=== PATIENT | female | born 1955 | race Caucasian/White ===

== ENCOUNTER 2022-07-07 13:08 | Outpatient (CLI) | payer MEDICARE, SELFPAY ==
[2022-07-07 23:07] LABS: Chloride* 105 mmol/L (96-114); Potassium* 4.3 mmol/L (3.6-5.1); Sodium* 138 mmol/L (135-149)
[2022-07-07 23:09] LABS: Creatinine* 0.8 mg/dL (0.5-1.5); Estimated Glomerular Filt Rate 80 ml/min
[2022-07-07 23:10] LABS: Blood Urea Nitrogen* 16 mg/dL (7-30); Carbon Dioxide* 27 mmol/L (20-32); Glucose* 78 mg/dL (60-115)
== END 2022-07-07 13:09 | disposition home or self-care (01) ==
LOC: LKVREF 13:09
PROVIDERS: PCP Family Medicine; Visit Provider Family Medicine
DX: Z01.818 Encounter for other preprocedural examination (principal)
CPT/HCPCS: 80048

== ENCOUNTER 2022-07-28 08:16 | Day surgery (SDC) | payer MEDICARE, SELFPAY ==
[2022-07-28] VITALS (24 sets, daily range): BP systolic 90–148; BP diastolic 60–109; PULSE 45–79; RESP 14–16; TEMP 35.8–36.6; O2SAT 91–98; BMI 29.9
[2022-07-28] MEDS: SODIUM CHLORIDE 0.9 % (FLUSH) 10 ML SYRINGE IVF (08:35)
[2022-07-28] MEDS: LACTATED RINGERS 1000 ML 1,000 ML 100 ML IV (08:35)
--- NOTE | 2022-07-28 08:47 | CRLHL7_ITS ---
For Patients: As a result of the Cures Act, medical imaging exams and procedure reports are released immediately into your electronic medical record. You may view this report before your referring provider. If you have questions, please contact your health care provider. Indication: post op left TKA Technique: Two views left knee Findings/Impression: Hardware from a left total knee arthroplasty is in satisfactory position. Bone alignment is normal. No sign of acute fracture. Postop changes are within normal limits. Dictated by William Ortiz MD @ 07/28/2022 12:31:33 PM (Electronically Signed)
[2022-07-28] MEDS: CELECOXIB 200 MG CAPSULE PO ×2 (08:55→21:37)
[2022-07-28] MEDS: ACETAMINOPHEN 500 MG TABLET 1000 MG PO ×3 (08:55→21:37)
[2022-07-28] MEDS: OXYCODONE (CR) 10 MG TAB.ER.12H PO (08:55)
[2022-07-28] MEDS: MIDAZOLAM HCL 1 MG/ML inj IVP (09:45)
[2022-07-28] MEDS: fentaNYL 100 MCG/2 ML inj IVP (09:45)
[2022-07-28] MEDS: CEFAZOLIN 2 GM in 0.9 % SODIUM CHLORIDE Mini-bag 100 ML IVPB ×3 (10:05→21:38)
--- NOTE | 2022-07-28 10:06 | SUR.PREOP ---
TIME?OUT:?0944 PT/RN/MDA?VERIFICATION?OF?SURGICAL?SITE left knee,?PROCEDURE,?AND?CONSENT OBTAINED?PRIOR?TO?INVASIVE?PROCEDURE.
[2022-07-28] MEDS: TRANEXAMIC ACID 100 MG/ML INJ 1000 MG IV (10:10)
--- NOTE | 2022-07-28 11:23 | P.ORPRC_ITS ---
Procedure Note Date of procedure: 07/28/22 Procedure: PREOPERATIVE DIAGNOSIS: 1. Left knee osteoarthritis, primary, severe POSTOPERATIVE DIAGNOSIS: 1. Left knee osteoarthritis, primary, severe PROCEDURE: 1. Left total knee arthroplasty SURGEON: Boy Caputo MD. GAMMA FACILITIES OPERATOR: Miguelito Davenport PA-C - Of note, a skilled assistant bookkeeper was critical for this case to aid in patient positioning, tissue retraction, limb manipulation/positioning, and closure. ANESTHESIA: Spinal anesthetic EBL: 50ml IMPLANTS: DePuy J&J all cemented TKA - Attune PS femur size 6 regular, size 5 tibia, 6 mm poly spacer, 35 mm patella TOURNIQUET: 90 min at 300 torr COMPLICATIONS: None evident INDICATIONS: The patient is a pleasant 58-year-old female who has experienced severe left knee pain and difficulty bearing weight. Workup included x-rays which revealed severe osteoarthrosis in the knee. Given the deformity, the dysfunction, and the pain, as well as the failure of nonoperative management, recommendation was made for surgery. FINDINGS: Full-thickness chondral loss medial compartment broadly. Significant patellofemoral chondromalacia. Moderate effusion upon entering the joint. Moderate synovitis noted throughout the knee as well. DESCRIPTION OF PROCEDURE: Following a thorough discussion of risks, benefits, and alternatives consent was obtained and the left knee was marked. The patient was brought to the operating room and placed supine on the operating table. Induction of anesthesia was undertaken. 2 g IV Ancef and 1 g tranexamic acid was administered within 1 hr of incision preoperatively. Proper time-out was performed identifying proper patient, site, procedure. The operative extremity was prepped and draped in the appropriate sterile fashion using ChloraPrep after the patient was positioned supine with all bony prominences well padded. A longitudinal, anterior, midline skin incision was made starting approximately 3cm proximal to the superior pole of the patella and advanced distal to the tibial tubercle. A median parapatellar arthrotomy was created. A medial subperiosteal sleeve was created with knife, tran elevator and curved osteotome. The retropatellar fatpad was resected and the synovium in the suprapatellar pouch excised to visualize the anterior femoral cortex. Femoral preparation was performed via an intramedullary guide. Step drill allowed access into the femoral canal. The distal cutting guide was placed with 5? of valgus and 10 mm cut on the distal femur. Femur was sized using a posterior referencing guide in 3? of external rotation. This found have a best fit with the sizing noted above. The 4 in 1 cutting block was then placed, and the distal femur shaped accordingly. The box cut was then created and the trial implant inserted to confirm appropriate fit. We turned our attention to the proximal tibia. Extramedullary guide was utilized for cutting with the goal of being 90 degree cut from the mechanical axis of the tibia in the varus/valgus plane utilizing tibial crest as the prima ry alignment. Initially a 2 mm resection was performed from the medial tibial plateau. Ultimately, balancing was achieved in both flexion and extension in both varus and valgus. The knee was able to achieve full extension as well comfortably. The patella was initially measured and found have a thickness of 24 mm. It was resected back to approximately 14.5 mm. It was sized to be a best fit with as noted above. This was drilled, trial placed. All trials were placed and found to have an excellent stability and balance. At this stage, trial implants were removed, the knee was thoroughly irrigated with normal saline, and the cement was mixed. After irrigation, the knee was thoroughly dried, and cement placed, with the real tibial and femoral implants placed along with the patella. Trial poly spacer was placed and confirmed to have excellent range of motion and full extension, and the real poly spacer opened and inserted. All extra cement was removed, and a 3 min Betadine soak performed. Finally, a final irrigation round with normal saline was performed. Closure performed with 0 PDS and #0 Stratafix for the quad tendon/retinaculum. 2-0 Vicryl/Stratafix for the subcutaneous and 4-0 Monocryl for subcuticular closure. Dressings were applied and the patient was awoken from anesthesia after the tourniquet deflated and transferred the PACU in stable condition. A skilled assistant bookkeeper was critical for this case to aid in patient positioning, tissue retraction, bone exposure, limb manipulation/positioning, patient safety, and closure. PLAN: 1. Weight bear as tolerated operative extremity. 2. 23 hr perioperative antibiotics. 3. Ice. 4. PT/OT consults for ambulation assistance/mobility education. 5. Social work consult for discharge planning. 6. DVT prophylaxis with at SCDs, Evertet Hose, and aspirin twice daily.
--- NOTE | 2022-07-28 11:47 | W.ANESCHARGE ---
Anesthesia Charges Start Date/Time Anesthesia Start Date: 07/28/22 Anesthesia Start Time: 09:55 Stop Date/Time Anesthesia Stop Date: 07/28/22 Anesthesia Stop Time: 12:09 Summary Emergency: No
--- NOTE | 2022-07-28 12:11 | W.ANESCHARGE ---
Anesthesia Charges Start Date/Time Anesthesia Start Date: 07/28/22 Anesthesia Start Time: 09:55 Stop Date/Time Anesthesia Stop Date: 07/28/22 Anesthesia Stop Time: 12:09 Summary Emergency: No
--- NOTE | 2022-07-28 12:17 | SUR.PHASEI ---
xray here for ap/lat let knee
--- NOTE | 2022-07-28 12:20 | P.NB_ITS ---
Nerve Block Nerve Block Time Seen by Provider: 09:48 Date Seen: 07/28/22 Type of block requested by surgeon for post-operative analgesia: adductor canal Side: left Time out performed: Yes Verification of patient name: Yes Verification of date of : Yes Site marking: site marked Name of person performing procedure: Baldemar Continuous monitoring Was continuous monitoring of O2 sat, B/P, supervisor fur dressing, recorded every 15 minutes?: Yes Procedure Checklist: sterile prep, needles and gloves Ultrasound guided. Images saved: Yes Medications given in 5ml increments after negative aspiration: Ropivicaine %: 0.5 mL: 20 Needle gauge: 20 Decadron (mg): 10 Precedex (mcg): 25 Patient tolerated procedure well: Yes Additional comments: Needle noted adjacent to nerve Block Charges Block Charge (with Pro Fee): Femoral Nerve Use of Ultrasound Machine for Block: Yes- US Guidance/pain block
--- NOTE | 2022-07-28 12:21 | W.PM.NB ---
Nerve Block Nerve Block Time Seen by Provider: 09:48 Date Seen: 07/28/22 Type of block requested by surgeon for post-operative analgesia: geniculars Side: left Time out performed: Yes Verification of patient name: Yes Verification of date of : Yes Site marking: site marked Name of person performing procedure: Baldemar Continuous monitoring Was continuous monitoring of O2 sat, B/P, cardiac catheterization technologist, recorded every 15 minutes?: Yes Procedure Checklist: sterile prep, needles and gloves Medications given in 5ml increments after negative aspiration: Ropivicaine %: 0.5 mL: 9 Needle gauge: 25 Patient tolerated procedure well: Yes Block Charges Block Charge (with Pro Fee): Genicular Nerve Block Use of Ultrasound Machine for Block: No
[2022-07-28] MEDS: ONDANSETRON 2 MG/ML inj 4 MG IVP ×2 (14:45→18:23)
[2022-07-28] MEDS: HYDROmorphone 0.5 mg/0.5 ml inj IVP (14:45)
[2022-07-28] MEDS: OXYCODONE 5 MG TABLET PO ×3 (15:24→21:36)
--- NOTE | 2022-07-28 19:02 | PM.IMCN1 ---
Date of Consult Patient: [facility] Patient Consult date: 07/28/22 Requesting Physician: Orthopedics Primary Care Provider: Jeanmarie Cisneros MD Consult Narrative Reason for consult: Help manage postoperative hypertension, ascending aortic aneurysm Narrative: Vonda Jeronimo is a 66 year old woman with end-stage left gonarthrosis presents for elective left total knee arthroplasty today. This is undertaken successfully without any apparent complications. Generally doing well at this time including with pain management. Review of Systems Status of ROS: Reports: 10 or more systems reviewed and unremarkable except as noted in History and below Narrative: Usually active and healthy. roughly 2 years ago. Had been living in her daughter's basement apartment up until this past January when she moved to [place], [place]. Enjoys hiking and walking and gardening. Hiking and walking and become increasingly difficult because of left knee pain. Ready for surgery so she can resume hiking and walking. She tells me that her children are becoming increasingly concerned about her physical activities and prowess and are working with her to help her try to slow down and be more careful with her activities. Has chronic, perennial nonallergic and possibly allergic rhinitis as well as vasomotor rhinitis. Recently completed 2 courses of antibiotics for sinusitis, doxycycline followed by Augmentin. Facial pressure and pain improved upon completion of these antibiotic regimens. Denies fevers, rigors, diaphoresis. Denies chest heaviness, pressure, tightness, or pain. Denies cough or dyspnea at rest, paroxysmal nocturnal dyspnea, orthopnea. Denies syncope or near-syncope. Denies palpitations or chest fluttering. No nausea vomiting. No lower extremity edema. Bowel and bladder habits are satisfactory. No concerns. No recent trauma, injury, or travel. Denies blood loss. No weight gain or weight loss. Lists her daughter Becky and her son Oleg as her power of deputy commonwealth's attorney for health should that be required. Requests full resuscitation be attempted for witnessed arrest only. [facility] Medical History Aortic aneurysm Ascending aorta dilation Cervical vertebral fusion (~2009) Depression Disorder of paranasal sinus Encounter for annual wellness exam in Medicare patient Encounter for counseling regarding advance directives (12/21/17) Encounter for postoperative care Encounter for pre-operative examination Encounter for preoperative screening laboratory testing for severe acute respiratory syndrome coronavirus 2 (SARS-CoV-2) Fatigue (06/2017) Grief reaction Hypertension Inguinal hernia (~2013) Melanoma of upper arm Sore throat (06/2017) Surgical History H/O hernia repair H/O nasal septoplasty (~05/2020) H/O spinal fusion History of appendectomy (~1965) History of carpal tunnel release of both wrists History of hysterectomy History of tonsillectomy and adenoidectomy S/P surgery on nasal septum Trigger finger of both hands Family History Mother Breast cancer Lung cancer Sister Breast cancer High blood pressure Hypercholesterolemia Melanoma Father Pancreatic cancer Social History Smoking Status: Never smoker Do you use any of these nicotine containing products: None How often do you have a drink containing alcohol: 2-4 times a month Alcohol type: beer and wine How many standard drinks containing alcohol do you have on a typical day: 1 or 2 How often do you have six or more drinks on one occasion: Never AUDIT-C Alcohol total score: 2 Non-prescribed substance use: denies use Caffeine: Yes (chocolate, tea) Little interest or pleasure in doing things: not at all Feeling down, depressed, or hopeless: several days service: No Meds Home Medications and Allergies Home Medications Medication Instructions Recorded Confirmed Type Lactobacillus acidophilus 1 1,000 mmu cells PO QDAY 01/13/22 07/28/22 History billion cell capsule (Probiotic Gold Acidophilus) quercetin supplement PO BID 01/13/22 07/18/22 History Allergies Allergy/AdvReac Type Severity Reaction Status Date / Time glycopyrrolate Allergy Intermediate Muscle Pain Verified 07/18/22 16:12 codeine Allergy Mild Headache Verified 07/18/22 16:12 Exam Narrative: Exam Narrative: Sitting up in recliner chair at the side of her bed. Appears comfortable and in no acute distress. Alert and oriented to self, place, time, situation. Friendly, cooperative, talkative, articulate. Mood and affect are congruent. Vision and hearing are both grossly normal. Dentition in fair repair. Moist buccal mucosa. Neck is supple. Midline trachea. No JVD, hepatojugular reflux, or carotid bruits. No lymphadenopathy. Lungs are clear to auscultation without wheezing, rhonchi, or rales. No CVA tenderness. Heart tones with regular rhythm, normal S1-S2. Grade 2/6 systolic murmur left upper sternal border. No gallop or rub. PMI is not laterally displaced. Abdomen with active bowel sounds, soft, nontender. No rebound or guarding. No hepatosplenomegaly or masses. Extremities without edema. Const: Vital Signs, click to edit/add: Vital Signs - 24 hr 07/28/22 09:16 07/28/22 09:46 07/28/22 09:50 Temperature 97.1 F L Pulse Rate 61 48 L 53 L Pulse Rate [Pulse Oximeter] Respiratory Rate 16 16 16 Blood Pressure 122/89 120/89 108/74 Blood Pressure [Ri ght Arm] Pulse Oximetry 95 95 92 Oxygen Delivery Me thod Room Air Nasal Cannula Room Air Oxygen Flow Rate 3 07/28/22 12:05 07/28/22 12:10 07/28/22 12:15 Temperature 97.4 F L 97.4 F L 97.4 F L Pulse Rate 63 63 50 L Pulse Rate [Pulse Oximeter] Respiratory Rate 16 16 16 Blood Pressure 90/60 99/68 106/74 Blood Pressure [Ri ght Arm] Pulse Oximetry 95 97 98 Oxygen Delivery Me thod Nasal Cannula Nasal Cannula Nasal Cannula Oxygen Flow Rate 3 3 3 07/28/22 12:20 07/28/22 12:25 07/28/22 12:30 Temperature Pulse Rate 52 L 54 L 46 L Pulse Rate [Pulse Oximeter] Respiratory Rate 16 16 16 Blood Pressure 105/69 106/66 106/72 Blood Pressure [Ri ght Arm] Pulse Oximetry 97 98 98 Oxygen Delivery Me thod Nasal Cannula Nasal Cannula Nasal Cannula Oxygen Flow Rate 3 3 3 07/28/22 12:35 07/28/22 12:57 07/28/22 13:00 Temperature 97.6 F 96.4 F L 96.9 F L Pulse Rate 46 L 49 L Pulse Rate [Pulse Oximeter] 45 L Respiratory Rate 16 14 14 Blood Pressure 112/75 Blood Pressure [Ri ght Arm] 108/68 122/80 Pulse Oximetry 98 95 Oxygen Delivery Me thod Nasal Cannula Room Air Room Air Oxygen Flow Rate 3 07/28/22 13:15 07/28/22 13:30 07/28/22 13:45 Temperature 96.7 F L 96.5 F L 96.6 F L Pulse Rate Pulse Rate [Pulse Oximeter] 50 L 49 L 49 L Respiratory Rate 14 14 14 Blood Pressure Blood Pressure [Ri ght Arm] 111/76 142/91 H 125/72 Pulse Oximetry 93 96 96 Oxygen Delivery Me thod Room Air Room Air Room Air Oxygen Flow Rate 07/28/22 14:15 07/28/22 14:45 07/28/22 15:15 Temperature 96.6 F L 97.2 F L 97.5 F L Pulse Rate Pulse Rate [Pulse Oximeter] 51 L 50 L 47 L Respiratory Rate 14 14 14 Blood Pressure Blood Pressure [Ri ght Arm] 136/109 H 143/99 H 130/77 Pulse Oximetry 94 95 93 Oxygen Delivery Me thod Room Air Room Air Room Air Oxygen Flow Rate 07/28/22 16:15 07/28/22 17:15 07/28/22 15:00 Temperature 97.8 F 97.9 F Pulse Rate Pulse Rate [Pulse Oximeter] 53 L 79 Respiratory Rate 14 14 Blood Pressure Blood Pressure [Ri ght Arm] 120/73 148/93 H Pulse Oximetry 95 94 94 Oxygen Delivery Me thod Room Air Room Air Oxygen Flow Rate Documenting provider has reviewed patient's vital signs: yes Assessment and Plan Assessment and plan (1) Osteoarthritis of left knee: Problem comment: Severe, [id number] Status: Acute (2) Status post left knee replacement: Status: Acute (3) Hypertension: Status: Acute (4) Ascending aorta dilation: Status: Acute (5) Chronic nonallergic rhinitis: Status: Acute (6) Chronic sinusitis: Status: Acute (7) Hyperlipidemia: Status: Acute Plan 1. Reviewed impression with patient 2. Continue with antihypertensive medication regimen 3. Discussed antihistamine nasal sprays (such as olopatadine and azelastine) and anticholinergic nasal sprays (such as ipratropium) as possible adjuvant treatment for her chronic nonallergic rhinitis. Provided her with this information and suggested she consider this with her primary care physician or otorhynolaryngologist. 4. Agree with postoperative venous thromboembolism prophylaxis efforts. 5. Agree with perioperative prophylactic antibiotics. 6. Will follow with Orthopedic surgery while she is here. Hospitalist have completed their portion of the discharge orders. Patient is ready to be discharged from the hospital from the hospitalist perspective when Orthopedic surgery deems that patient is ready to be discharged safely. 7. Answered patient's questions to her satisfaction. 8. Stressed with patient the need to have close follow-up in regard to her blood pressure is in an effort to continue to optimally manage the known ascending aortic aneurysm that she has. Last measured in [address] scan, measured at 5.1 cm. Is due to see her manager military in regard to the same again later this year with pre visit echocardiogram. Urged her to continue to pursue this course of action. 9. Patient agreeable to above stated plans and recommendations
--- NOTE | 2022-07-28 19:03 | PC.NURSE ---
End of Shift: Patient pleasant and cooperative. Patient vitally stable, lungs clear, BS WNL, IV SL. Patient 1 assist, walker, gb. Patient has rated pain at most 4/10, 5 mg of oxy given once, and 10 mg of oxy given once, Zophran given x2 for nausea. Patient used toilet x2, and tolerating regular diet. Patient was up in chair for dinner.
[2022-07-28] MEDS: ASPIRIN 81 MG TABLET EC PO (21:37)
[2022-07-28] MEDS: SENNOSIDES 1 TAB TABLET 2 TAB PO (21:37)
[2022-07-29] MEDS: OXYCODONE 5 MG TABLET PO ×2 (02:53→10:36)
[2022-07-29 03:00] VITALS: BP 97/65; PULSE 68; RESP 16; TEMP 37; O2SAT 90
[2022-07-29] MEDS: CEFAZOLIN 2 GM in 0.9 % SODIUM CHLORIDE Mini-bag 100 ML IVPB (05:32)
[2022-07-29] MEDS: ACETAMINOPHEN 500 MG TABLET 1000 MG PO ×2 (05:42→10:01)
--- NOTE | 2022-07-29 06:17 | PC.NURSE ---
Shift note: Pt's condition is improving very well. Doing well with A1, walker and GB for ambulation in the hallway. Minimal pain level at incisional site reported. Pt also complained of headache, Tylenol was given and still admitted of some amount of pain. Dressing appears clean and dry. No post op. complication noted. Tolerating regular diet very well. Pt has not pass gas nor had BM yet.
[2022-07-29 07:00] VITALS: O2SAT 97
[2022-07-29 07:35] VITALS: BP 109/69; PULSE 68; RESP 18; TEMP 36.6; O2SAT 97
[2022-07-29 07:44] LABS: Basophils Percent Auto 0.1 % (0.0-3.0); Hemoglobin* 12.1 gm/dL (12.0-16.0); Immature Granulocytes Pct Auto 0.1 %; Lymphocytes Percent Auto 12.8 % (20-44); Mean Corpuscular HGB Conc 34 gm/dL (32-36); Mean Corpuscular Hemoglobin 32 pg (26-34); Mean Corpuscular Volume 95 fL (80-100); Platelet Count* 288 K/uL (140-440); RDW Coefficient of Variation % 13.2 % (11.5-15.5); White Blood Count* 12.59 K/uL (4.50-11.00)
[2022-07-29 07:54] LABS: Slide Review Reflex No
[2022-07-29 08:00] LABS: Potassium* 4.3 mmol/L (3.6-5.1); Sodium* 135 mmol/L (135-149)
[2022-07-29 08:03] LABS: Blood Urea Nitrogen* 13 mg/dL (7-30); Creatinine* 0.6 mg/dL (0.5-1.5); Est. Creatinine Clearance* 50.41; Estimated Glomerular Filt Rate 98 ml/min
[2022-07-29] MEDS: ASPIRIN 81 MG TABLET EC PO (08:52)
[2022-07-29] MEDS: SENNOSIDES 1 TAB TABLET 2 TAB PO (08:52)
[2022-07-29] MEDS: LACTOBACILLUS ACIDOPHILUS 1 TABLET 1 TAB PO (08:52)
[2022-07-29] MEDS: LOSARTAN POTASSIUM 50 MG TABLET 25 MG PO (08:53)
[2022-07-29] MEDS: CELECOXIB 200 MG CAPSULE PO (08:53)
[2022-07-29] MEDS: ONDANSETRON ODT 4 MG TAB PO (10:25)
--- NOTE | 2022-07-29 12:11 | PM.ORPN ---
Subjective Subjective Date Seen: 07/29/22 Principal diagnosis: Status postop day 1 left total knee arthroplasty Interval history: Patient reports doing well. No acute events over night. Comments that she has had a headache. Nausea postop day 0, since resolved and now having good appetite. She ate well this morning. Pain managed with scheduled /PRN medications and ice. DVT prophylaxis 81 mg aspirin by mouth twice daily, bilateral knee high Everett stockings, and SCDs. Denies fevers, chills, aches, N/V, CP, SOB/MOSER, tachycardia, or lightheadedness. Ortho Exam Narrative Exam Narrative: -Patient appears comfortable; no apparent acute distress -Alert and oriented times 3 -Operative knee mildly swollen; soft tissues supple; no ecchymosis; no erythematous streaking Warmth appropriate -Surgical dressing clean, dry, intact; no drainage -Bilateral calfs soft; no significant swelling, edema, tenderness, erythema, discoloration, warmth, or palpable cords -2+ DP/PT pulses, intact dermatomes and myotomes distally (5/5 strength) Const Vital Signs, click to edit/add: Vital Signs - 24 hr 07/28/22 12:15 07/28/22 12:20 07/28/22 12:25 Temperature 97.4 F L Pulse Rate 50 L 52 L 54 L Pulse Rate [Pulse Oximeter] Respiratory Rate 16 16 16 Blood Pressure 106/74 105/69 106/66 Blood Pressure [Right Arm] Pulse Oximetry 98 97 98 Oxygen Delivery Method Nasal Cannula Nasal Cannula Nasal Cannula Oxygen Flow Rate 3 3 3 07/28/22 12:30 07/28/22 12:35 07/28/22 12:57 Temperature 97.6 F 96.4 F L Pulse Rate 46 L 46 L 49 L Pulse Rate [Pulse Oximeter] Respiratory Rate 16 16 14 Blood Pressure 106/72 112/75 Blood Pressure [Right Arm] 108/68 Pulse Oximetry 98 98 Oxygen Delivery Method Nasal Cannula Nasal Cannula Room Air Oxygen Flow Rate 3 3 07/28/22 13:00 07/28/22 13:15 07/28/22 13:30 Temperature 96.9 F L 96.7 F L 96.5 F L Pulse Rate Pulse Rate [Pulse Oximeter] 45 L 50 L 49 L Respiratory Rate 14 14 14 Blood Pressure Blood Pressure [Right Arm] 122/80 111/76 142/91 H Pulse Oximetry 95 93 96 Oxygen Delivery Method Room Air Room Air Room Air Oxygen Flow Rate 07/28/22 13:45 07/28/22 14:15 07/28/22 14:45 Temperature 96.6 F L 96.6 F L 97.2 F L Pulse Rate Pulse Rate [Pulse Oximeter] 49 L 51 L 50 L Respiratory Rate 14 14 14 Blood Pressure Blood Pressure [Right Arm] 125/72 136/109 H 143/99 H Pulse Oximetry 96 94 95 Oxygen Delivery Method Room Air Room Air Room Air Oxygen Flow Rate 07/28/22 15:15 07/28/22 16:15 07/28/22 17:15 Temperature 97.5 F L 97.8 F 97.9 F Pulse Rate Pulse Rate [Pulse Oximeter] 47 L 53 L 79 Respiratory Rate 14 14 14 Blood Pressure Blood Pressure [Right Arm] 130/77 120/73 148/93 H Pulse Oximetry 93 95 94 Oxygen Delivery Method Room Air Room Air Room Air Oxygen Flow Rate 07/28/22 15:00 07/28/22 18:45 07/28/22 19:00 Temperature 97.7 F 97.8 F Pulse Rate Pulse Rate [Pulse Oximeter] 68 64 Respiratory Rate 16 16 Blood Pressure Blood Pressure [Right Arm] 115/78 121/74 Pulse Oximetry 94 97 91 Oxygen Delivery Method Room Air Room Air Oxygen Flow Rate 07/28/22 23:00 07/28/22 23:00 07/29/22 03:00 Temperature 97.8 F 98.6 F Pulse Rate Pulse Rate [Pulse Oximeter] 66 68 Respiratory Rate 16 16 Blood Pressure Blood Pressure [Right Arm] 125/77 97/65 Pulse Oximetry 92 92 90 Oxygen Delivery Method Room Air Room Air Oxygen Flow Rate 07/29/22 07:35 07/29/22 07:00 Temperature 97.9 F Pulse Rate Pulse Rate [Pulse Oximeter] 68 Respiratory Rate 18 Blood Pressure Blood Pressure [Right Arm] 109/69 Pulse Oximetry 97 97 Oxygen Delivery Method Room Air Oxygen Flow Rate Assessment and Plan Assessment and plan (1) Osteoarthritis of left knee: Problem details: Severe, [id number] Status: Resolved (2) Status post left knee replacement: Problem details: left TKA (07/28/2022, Dr. Caputo) Status: Acute (3) Hypertension: Status: Acute (4) Ascending aorta dilation: Status: Acute (5) Chronic nonallergic rhinitis: Status: Acute (6) Chronic sinusitis: Status: Acute (7) Hyperlipidemia: Status: Acute Plan - Complete 23 hour perioperative antibiotics. - PT/OT consult for education and assistance. - Social work consult for discharge planning - Prescribed analgesics as needed - DVT prophylaxis: 81 mg aspirin by mouth twice daily, bilateral knee high Everett Hose stockings and SCDs - Anticipation is for discharge to home with sister 07/29/2022 if the patient remains medically stable, pain is controlled, and they are safe with mobilization.
--- NOTE | 2022-07-29 12:12 | PM.DS1 ---
DS: Providers Provider Date Seen: 07/29/22 Date of admission: Med/Surg Recovery 07/28/2022 Primary care physician: Jeanmarie Cisneros MD Consults: 07/28/22 12:49 Consult to Occupational Therapy [CONS] Routine Comment: Reason(s) for OT Consult:: ADLs Prior to Discharge Any Restrictions?:: See Comment Comment: See nursing activity order for any restrictions. Consult to Physical Therapy [CONS] Routine Comment: Ambulate in the [place] today. Reason(s) for PT Consult:: TKA TX Protocol POD#0 Any Restrictions?:: See Comment Comment: See nursing activity order for any restrictions. Consult to Physician [CONS] Routine Comment: Consulting Provider: Hospitalists Has provider been notified: No Consult to Case Investigator [CONS] Routine Comment: Reason for Consult:: Discharge Planning Needs Attending Physician on discharge: Boy Caputo MD Date of Discharge: 07/29/22 DS: Diagnosis Discharge Diagnosis (1) Status post left knee replacement: Status: Acute Problem details: left TKA (07/28/2022, Dr. Caputo) DS: Summary Hospital Course Hospital Course: The patient has a history of left knee osteoarthritis, primary, severe. After appropriate preoperative evaluation, the patient underwent left total knee arthroplasty. Postoperatively given anticoagulation for deep vein thrombosis prophylaxis - 81 mg aspirin by mouth twice daily. They progressed to PT/OT and were felt ready and prepared for discharge to home with appropriate pain medication and anticoagulation medications. Status at Discharge Functional status at discharge: uses cane/walker Overall status at discharge: patient is progressing back to baseline Time Spent with Patient Time attestation: Total time spent providing and/or coordinating discharge services: Exam Const: Vital Signs, click to edit/add: Vital Signs - 24 hr 07/28/22 12:15 07/28/22 12:20 07/28/22 12:25 Temperature 97.4 F L Pulse Rate 50 L 52 L 54 L Pulse Rate [Pulse Oximeter] Respiratory Rate 16 16 16 Blood Pressure 106/74 105/69 106/66 Blood Pressure [Ri ght Arm] Pulse Oximetry 98 97 98 Oxygen Delivery Me thod Nasal Cannula Nasal Cannula Nasal Cannula Oxygen Flow Rate 3 3 3 07/28/22 12:30 07/28/22 12:35 07/28/22 12:57 Temperature 97.6 F 96.4 F L Pulse Rate 46 L 46 L 49 L Pulse Rate [Pulse Oximeter] Respiratory Rate 16 16 14 Blood Pressure 106/72 112/75 Blood Pressure [Ri ght Arm] 108/68 Pulse Oximetry 98 98 Oxygen Delivery Me thod Nasal Cannula Nasal Cannula Room Air Oxygen Flow Rate 3 3 07/28/22 13:00 07/28/22 13:15 07/28/22 13:30 Temperature 96.9 F L 96.7 F L 96.5 F L Pulse Rate Pulse Rate [Pulse Oximeter] 45 L 50 L 49 L Respiratory Rate 14 14 14 Blood Pressure Blood Pressure [Ri ght Arm] 122/80 111/76 142/91 H Pulse Oximetry 95 93 96 Oxygen Delivery Me thod Room Air Room Air Room Air Oxygen Flow Rate 07/28/22 13:45 07/28/22 14:15 07/28/22 14:45 Temperature 96.6 F L 96.6 F L 97.2 F L Pulse Rate Pulse Rate [Pulse Oximeter] 49 L 51 L 50 L Respiratory Rate 14 14 14 Blood Pressure Blood Pressure [Ri ght Arm] 125/72 136/109 H 143/99 H Pulse Oximetry 96 94 95 Oxygen Delivery Me thod Room Air Room Air Room Air Oxygen Flow Rate 07/28/22 15:15 07/28/22 16:15 07/28/22 17:15 Temperature 97.5 F L 97.8 F 97.9 F Pulse Rate Pulse Rate [Pulse Oximeter] 47 L 53 L 79 Respiratory Rate 14 14 14 Blood Pressure Blood Pressure [Ri ght Arm] 130/77 120/73 148/93 H Pulse Oximetry 93 95 94 Oxygen Delivery Me thod Room Air Room Air Room Air Oxygen Flow Rate 07/28/22 15:00 07/28/22 18:45 07/28/22 19:00 Temperature 97.7 F 97.8 F Pulse Rate Pulse Rate [Pulse Oximeter] 68 64 Respiratory Rate 16 16 Blood Pressure Blood Pressure [Ri ght Arm] 115/78 121/74 Pulse Oximetry 94 97 91 Oxygen Delivery Me thod Room Air Room Air Oxygen Flow Rate 07/28/22 23:00 07/28/22 23:00 07/29/22 03:00 Temperature 97.8 F 98.6 F Pulse Rate Pulse Rate [Pulse Oximeter] 66 68 Respiratory Rate 16 16 Blood Pressure Blood Pressure [Ri ght Arm] 125/77 97/65 Pulse Oximetry 92 92 90 Oxygen Delivery Me thod Room Air Room Air Oxygen Flow Rate 07/29/22 07:35 07/29/22 07:00 Temperature 97.9 F Pulse Rate Pulse Rate [Pulse Oximeter] 68 Respiratory Rate 18 Blood Pressure Blood Pressure [Ri ght Arm] 109/69 Pulse Oximetry 97 97 Oxygen Delivery Me thod Room Air Oxygen Flow Rate DS: Data Data Completed and Pending Labs on day of discharge: Labs from last 24 hours 07/29/22 07/29/22 07:23 07:23 WBC 12.59 H RBC 3.80 L Hgb 12.1 Hct 36.0 MCV 95 MCH 32 MCHC 34 RDW Coeff of Abel 13.2 Plt Count 288 Neut % (Auto) 79.0 H Lymph % (Auto) 12.8 L Stanton % (Auto) 8.0 Eos % (Auto) 0.0 Baso % (Auto) 0.1 Neut # (Auto) 9.90 H Lymph # (Auto) 1.60 Stanton # (Auto) 1.00 H Eos # (Auto) 0.00 Baso # (Auto) 0.00 Sodium 135 Potassium 4.3 BUN 13 Creatinine 0.6 Estimated Creat Clear 50.41 Estimated GFR 98 Discharge Plan Discharge Disposition: Home, Self-Care Discharging Surgeon: Boy Caputo Follow-Up Appointment: 1 week PO with SHARON Prescriptions: New sennosides-docusate sodium [Senna-S] 8.6-50 mg tablet 1 - 4 tab-cap PO BID PRN (Reason: constipation) Qty: 60 0RF Rx Instructions: Hold medication if experiencing loose stools. aspirin 81 mg tablet,delayed release (DR/EC) 81 mg PO BID Qty: 60 0RF Rx Instructions: Medication to help prevent blood clots postoperatively; take TWICE daily. celecoxib 100 mg capsule 100 mg PO BID Qty: 60 0RF acetaminophen 500 mg capsule 500 - 1,000 mg PO Q6H MDD 4000mg PRNQty: 100 0RF oxycodone 5 mg tablet 2.5 - 5 mg PO Q4-6H MDD 6 PRN (Reason: pain) Qty: 42 0RF Rx Instructions: Take as needed for postop pain: 2.5mg mild pain, 5mg moderate-severe pain; wean as tolerated. ondansetron 4 mg Tablet,Disintegrating 4 mg PO Q6H PRNQty: 14 0RF Continued Probiotic Gold Acidophilus 1 billion cell capsule 1,000 mmu cells PO QDAY quercetin supplement PO BID losartan 25 mg tablet 25 mg PO DAILY Qty: 90 2RF Activity Level: Activity as Tolerated, Weight Bearing as Tolerated, Use Cane and Use Walker Activity Detail: Wound: ?Do not remove original dressing; we will remove this at first postop visit in 1 week. Only remove dressing if integrity is in question. ?No immersing wound in water; showering okay; light scrub with your hand and body soap, rinse, dab dry ?Sutures are under the skin, will dissolve; allow surgical glue to come off naturally; do not scrub the wound or apply ointments/lotions ?Call our office with any redness that streaks, excessive drainage from the wound, or wound gapping. Ice/Elevate: ?Ice as needed for swelling and discomfort (cryocuff or ice pack); elevate frequently above the heart KEVIN socks: ?Wear for 1 month, remove for 1 hour 3 times per day ?These are frustrating to take on/off, but are important for blood clot prevention for 1 month after surgery Blood Clot Prevention (DVT): ?Medication: 81 mg aspirin by mouth twice daily (1 month) Driving: ?Do not drive while taking narcotic pain medication ?Anticipate 4-6 weeks no driving if operative leg is driving leg Dental: ?No elective dental work for 6 months post-op. If there is an urgent/emergent dental need, contact our office for an antibiotic prescription. Smoking/Alcohol: ?Do not smoke; do no drink alcohol especially when taking postoperative oral narcotic medication Seek Care from you Primary Care Provider if you experience the following issues in the postoperative phase and beyond: ?Bacterial infections such as: pneumonia, bacterial skin infection (cellulitis), UTI, high fever, chills unrelated to the operative body part - call your primary care physician urgently for treatment in hopes to protect your health and the metal implant. Referrals: ?PT, OT per patient preference - evaluate treat total knee arthroplasty protocol (gait training, ROM, ADLs) Follow up: ?Ortho surgeon follow-up in 6 weeks; repeat radiographs three views operative knee ?PA-C visit in 1 week *If there are any acute concerns regarding your surgery, please call our orthopedic clinic ([phone]) Discharge Diet: Regular Patient Instructions: Acetaminophen (By mouth), Aspirin (By mouth), Oxycodone, Rapid Release (By mouth), Celecoxib (By mouth), Senna (By mouth), Surgical Site Infections (DC), Knee Replacement (DC) Follow-up: Boy Caputo MD [Staff Physician] - 08/07/22 1:00 pm (At the [facility]. Please call if you have any questions.) Jeanmarie Cisneros MD [Primary Care Provider] - Discharge Orders: Discharge Order (Routine); Ordered 07/29/22 Ordered By: Miguelito Davenport Consulting provider completed their portion of the discharge: Yes
== END 2022-07-29 11:06 | disposition home or self-care (01) ==
LOC: OR 08:17 → MEDSURG 08:20
PROVIDERS: PCP Family Medicine; Visit Provider Orthopaedic Surgery Sports Medicine
PROC: (CPT 27447; principal; 2022-07-28 10:45)
DX: M17.12 Unilateral primary osteoarthritis, left knee (principal); M25.562 Pain in left knee; I10 Essential (primary) hypertension; I77.810 Thoracic aortic ectasia; J31.0 Chronic rhinitis; J32.9 Chronic sinusitis, unspecified; E78.5 Hyperlipidemia, unspecified
CPT/HCPCS: 27447; 01402; 36415; 64447; 64454; 73560; 76942; 82565; 84132; 84295; 84520; 85025; 97110; 97116; 97161; 97165; 97530; 97535; A9270; C1776; J0690; J1100; J1170; J2250; J2405; J2704; J2795; J3010; J7120

== ENCOUNTER 2023-01-15 06:53 | Outpatient (CLI) | payer MEDICARE, SELFPAY ==
--- NOTE | 2023-01-15 07:07 | P.ANHP_ITS ---
HPI - Pre-Anesthesia History of Present Illness Time Seen by Provider: 07:30 Date Seen: 01/15/23 Date of service: 01/15/23 Source: patient and old records reviewed Review of Systems Status of ROS Reports: 6 or more systems reviewed and unremarkable except as noted in History and below [facility] Medical History (Updated 07/29/22 @ 07:48 by Kelly Fragoso) Melanoma of upper arm ?C43.60 - Malignant melanoma of unspecified upper limb, including shoulder (ICD-10) Cervical vertebral fusion (~2009) ?M43.22 - Fusion of spine, cervical region (ICD-10) Inguinal hernia (~2013) ?K40.90 - Unilateral inguinal hernia, without obstruction or gangrene, not specified as recurrent (ICD-10) Aortic aneurysm ?I71.9 - Aortic aneurysm of unspecified site, without rupture (ICD-10) Depression ?F32.A - Depression, unspecified (ICD-10) Grief reaction ?F43.21 - Adjustment disorder with depressed mood (ICD-10) Hypertension ?I10 - Essential (primary) hypertension (ICD-10) Ascending aorta dilation ?I77.810 - Thoracic aortic ectasia (ICD-10) Sore throat (06/2017) ?J02.9 - Acute pharyngitis, unspecified (ICD-10) Fatigue (06/2017) ?R53.83 - Other fatigue (ICD-10) Encounter for preoperative screening laboratory testing for severe acute respiratory syndrome coronavirus 2 (SARS-CoV-2) ?Z01.812 - Encounter for preprocedural laboratory examination (ICD-10) ?Z20.822 - Contact with and (suspected) exposure to covid-19 (ICD-10) Encounter for pre-operative examination ?Z01.818 - Encounter for other preprocedural examination (ICD-10) Encounter for postoperative care ?Z48.89 - Encounter for other specified surgical aftercare (ICD-10) Encounter for counseling regarding advance directives (12/21/17) ?Z71.89 - Other specified counseling (ICD-10) Encounter for annual wellness exam in Medicare patient ?Z00.00 - Encounter for general adult medical examination without abnormal findings (ICD-10) Disorder of paranasal sinus ?J34.9 - Unspecified disorder of nose and nasal sinuses (ICD-10) Surgical History (Updated 07/29/22 @ 07:48 by Kelly Fragoso) Status post left knee replacement (07/28/22) ?Z96.652 - Presence of left artificial knee joint (ICD-10) H/O nasal septoplasty (~05/2020) ?Z98.890 - Other specified postprocedural states (ICD-10) S/P surgery on nasal septum ?Z98.890 - Other specified postprocedural states (ICD-10) H/O hernia repair ?Z98.890 - Other specified postprocedural states (ICD-10) ?Z87.19 - Personal history of other diseases of the digestive system (ICD-10) H/O spinal fusion ?Z98.1 - Arthrodesis status (ICD-10) Trigger finger of both hands History of tonsillectomy and adenoidectomy ?Z90.89 - Acquired absence of other organs (ICD-10) History of hysterectomy ?Z90.710 - Acquired absence of both cervix and uterus (ICD-10) History of carpal tunnel release of both wrists ?Z98.890 - Other specified postprocedural states (ICD-10) History of appendectomy (~1965) ?Z90.49 - Acquired absence of other specified parts of digestive tract (ICD- 10) Family History Mother Breast cancer Lung cancer Sister Breast cancer High blood pressure Hypercholesterolemia Melanoma Father Pancreatic cancer Social History (Updated 09/04/22 @ 12:[address] ~ [facility]) Smoking Status: Former smoker What tobacco products do you use: cigarettes Years smoked: 3 Smoking quit date/years: >15 years ago Do you use any of these nicotine containing products: None How often do you have a drink containing alcohol: 2-4 times a month Alcohol type: beer and wine How many standard drinks containing alcohol do you have on a typical day: 1 or 2 How often do you have six or more drinks on one occasion: Never AUDIT-C Alcohol total score: 2 Non-prescribed substance use: denies use Caffeine: Yes (chocolate, tea) Little interest or pleasure in doing things: not at all Feeling down, depressed, or hopeless: several days service: No Meds Home Medications and Allergies Home Medications Medication Instructions Recorded Confirmed Type Lactobacillus acidophilus 1 1,000 mmu cells PO QDAY 01/13/22 09/02/22 History billion cell capsule (Probiotic Gold Acidophilus) quercetin supplement PO BID 01/13/22 09/02/22 History Allergies Allergy/AdvReac Type Severity Reaction Status Date / Time glycopyrrolate Allergy Intermediate Muscle Pain Verified 08/07/22 13:16 codeine Allergy Mild Headache Verified 08/07/22 13:16 Exam Const Documenting provider has reviewed patient's vital signs: yes Common normals: no apparent distress, oriented x3, healthy appearing, alert and well nourished General appearance: cooperative and comfortable Orientation/consciousness: Yes awake HENMT Common normals: normocephalic Head and scalp: normocephalic Neck & C-Spine Common normals: full ROM Chest Chest: symmetrical chest wall rise Resp Common normals: normal respiratory effort, no retractions, no use of accessory muscles and clear to auscultation bilaterally Auscultation: clear to auscultation bilaterally Cardio Common normals: regular rate, regular rhythm, S1 normal heart sound, S2 normal heart sound and no murmurs Rate: regular rate Rhythm: regular rhythm Heart sounds: S1 normal and S2 normal Neuro Common normals: oriented x3 Sensorium/orientation: awake and alert Assessment and Plan Assessment and plan (1) Polyp of colon: Status: Acute Plan ok to proceed with colonoscopy. Has had some memory associated with differed procedures drummond under sedation. Discussed how this happens and what we would do during the procedure
--- NOTE | 2023-01-15 07:07 | W.ANESCHARGE ---
Anesthesia Charges Start Date/Time Anesthesia Start Date: 01/15/23 Anesthesia Start Time: 08:07 Stop Date/Time Anesthesia Stop Date: 01/15/23 Anesthesia Stop Time: 09:12
--- NOTE | 2023-01-15 10:16 | W.ANESCHARGE ---
Anesthesia Charges Start Date/Time Anesthesia Start Date: 01/15/23 Anesthesia Start Time: 08:07 Stop Date/Time Anesthesia Stop Date: 01/15/23 Anesthesia Stop Time: 09:12
== END 2023-01-15 06:54 | disposition home or self-care (01) ==
LOC: OP CLINIC 06:54
PROVIDERS: PCP Family Medicine; Visit Provider Surgery
DX: Z86.010 Personal history of colon polyps (principal); K63.5 Polyp of colon; K57.30 Diverticulosis of large intestine without perforation or abscess without bleeding
CPT/HCPCS: 45385; 811; 88305; J2704

== ENCOUNTER 2023-04-06 10:47 | Outpatient (CLI) | payer MEDICARE, SELFPAY | END 2023-04-06 10:48 | disposition home or self-care (01) | PROVIDERS: PCP Family Medicine; Visit Provider Family Medicine | DX: Z00.00 Encounter for general adult medical examination without abnormal findings (principal); E78.5 Hyperlipidemia, unspecified; I10 Essential (primary) hypertension | CPT/HCPCS: 80053; 80061 ==

== ENCOUNTER 2023-07-15 12:51 | Outpatient (CLI) | payer MEDICARE, SELFPAY ==
--- NOTE | 2023-07-15 13:00 | XR_ITS ---
Patient: HASMUKH PICKETT Facility:?[facility] Patient ID:?[id number] Site Patient ID:?[id number]. Site :?[id number] Study:?DEXA-Bone Density DEXA - Spine/Hips-07/15/2023 1:57:37 PM Ordering Physician:STEVE MCKEON Final Report: DXA BONE MINERAL DENSITY STUDY Reason for exam: Postmenopausal, screen. Current height (in): 67.5. Weight (lb): 190. Menopause age: 48. Ethnicity: White. 1. Have you had a previous hip or vertebral fracture? No. 2. Have you had any fractures during your adult life which did not result from significant trauma (e.g., auto accident)? No. 3. Did either of your parents have a hip fracture? No. 4. Do you smoke? No. 5. Have you ever taken Glucocorticoids? No. 6. Do you have rheumatoid arthritis? No. 7. Do you have secondary osteoporosis? No. 8. Do you drink 3 or more alcoholic drinks per day? No. 9. Are you being treated for osteoporosis? No. 10. Have you ever taken any of the following medications: Actonel, Evista, Fosamax, Miacalcin, Reclast, Boniva, Forteo, HRT (i.e., estrogen/hormone therapy), Protelos, Prolia, Vitamin D, Calcium, other ? please specify. ANSWER: No. 11. Do you have any of the following medical conditions: Anorexia or bulimia, asthma or emphysema, end stage renal disease, hyperparathyroidism, any seizure disorders, cancer, inflammatory bowel diseases, hysterectomy, other ? please specify. ANSWER: Yes, hysterectomy. 12. What was your maximum height (inches)? 65. 13. Do you perform weight bearing exercise regularly? No. 14. Do you regularly consume dairy products? Yes. 15. Do you drink caffeinated beverages? No. If female: 16. At what age did your period start? 11. 17. Are you premenopausal? No. 18. How many full-term pregnancies have you had? 4. 19. Have you ever missed your period for more than 6 months in a row (not including or menopause)? No. TECHNIQUE: Bone mineral density study was performed using the [employer]. FINDINGS: The results of the study expressed as bone mineral density (BMD) are as follows: Lumbar spine L1, L3, L4: BMD: 1.260 g/cm2. T-score: 1.9. Z-score: 4.0 Neck Left: BMD: 0.799 g/cm2. T-score: -0.5. Z-score: 1.3 Right: BMD: 0.802 g/cm2. T-score: -0.4. Z-score: 1.4 Total Left: BMD: 0.916 g/cm2. T-score: -0.2. Z-score: 1.3 Right: BMD: 0.990 g/cm2. T-score: 0.4. Z-score: 1.9 IMPRESSION: Normal bone density. *Comparison exams done prior to 11/2019 were performed on different unit, [employer]. COMPARISON: Compared with scan of 06/07/2020, the bone mineral density has decreased by 3.5 percent at the hip. William Ortiz M.D. Diagnostic Radiologist [email or web address] D& Transcribed: 5:54 p.mAta toscano/Dictated by: William Ortiz MD @ 07/16/2023 12:53:00 PM Signed by:?William Ortiz MD @07/17/2023 5:35:47 AM (Electronic Signature)
--- NOTE | 2023-07-15 13:40 | CRLHL7_ITS ---
For Patients: As a result of the Century Cures Act, medical imaging exams and procedure reports are released immediately into your electronic medical record. You may view this report before your referring provider. If you have questions, please contact your health care provider. BILATERAL SCREENING MAMMOGRAM WITH COMPUTER-AIDED DETECTION TECHNIQUE: CC and MLO views were obtained. These mammographic images have been obtained using full-field digital technique. These mammographic images were interpreted with the benefit of computer-aided detection. COMPARISON FILM: 06/07/20, 09/13/18, 01/29/17. FINDINGS: There are scattered areas of fibroglandular density IMPRESSION: There is no radiographic evidence for malignancy. ASSESSMENT: BI-RADS Category 1: Negative RECOMMENDATION: Routine screening mammogram in 1 year. A lay language report of this examination will be provided to the patient. William Ortiz M.D. Diagnostic Radiologist [email or web address] RENNY/Dictated by: William Ortiz MD @ 07/16/2023 12:36:00 PM (Electronically Signed)
== END 2023-07-15 12:52 | disposition home or self-care (01) ==
LOC: RAD 12:52
PROVIDERS: PCP Family Medicine; Visit Provider Family Medicine
DX: Z12.31 Encounter for screening mammogram for malignant neoplasm of breast (principal); Z13.820 Encounter for screening for osteoporosis; Z78.0 Asymptomatic menopausal state
CPT/HCPCS: 77067; 77080

== ENCOUNTER 2024-04-15 09:31 | Outpatient (CLI) | payer MEDICARE, SELFPAY | END 2024-04-15 09:32 | disposition home or self-care (01) | LOC: NFLDREF 04-19 14:03 | PROVIDERS: PCP Family Medicine; Referring Provider Family Medicine; Visit Provider Family Medicine | DX: I10 Essential (primary) hypertension (principal); E78.5 Hyperlipidemia, unspecified | CPT/HCPCS: 80053; 80061 ==

== ENCOUNTER 2025-04-27 13:00 | Outpatient (CLI) | payer MEDICARE, BC, SELFPAY | END 2025-04-27 13:01 | disposition home or self-care (01) | PROVIDERS: PCP Family Medicine; Visit Provider Family Medicine | DX: E78.5 Hyperlipidemia, unspecified (principal); I10 Essential (primary) hypertension; M81.0 Age-related osteoporosis without current pathological fracture; E04.2 Nontoxic multinodular goiter; Z00.00 Encounter for general adult medical examination without abnormal findings | CPT/HCPCS: 80053; 80061; 82306; 84443 ==